=== PATIENT | male | born 1970 | race Caucasian/White ===

== ENCOUNTER 2023-06-02 08:17 | Emergency (ER) | payer BC ==
[2023-06-02] MEDS ORDERED: Dexamethasone 4 MG/ML SDV IM ONE (08:53)
[2023-06-02] MEDS ORDERED: Orphenadrine 60 MG/2 ML Inj IM ONE (08:54)
[2023-06-02] MEDS ORDERED: Acetaminophen/HYDROcodone 325-10 MG Tab PO ONE (08:54)
== END 2023-06-02 10:51 | disposition home or self-care (01) ==
LOC: DL.ED 08:17
DX: M54.16 Radiculopathy, lumbar region (principal); Z88.2 Allergy status to sulfonamides; E66.9 Obesity, unspecified; Z68.41 Body mass index [BMI] 40.0-44.9, adult
CPT/HCPCS: 72131; 96372; 99283; A9270; J1100; J2360